=== PATIENT | female | born 1955 ===

== ENCOUNTER 2018-10-11 09:12 | Inpatient (IN) ==
[2018-10-11 11:44] LABS: Basophils % 0.3 % (0.0-0.8); Eosinophils # 0.1 10*3/uL (0.0-0.87); Eosinophils % 0.6 % (0.00-10.9); Hematocrit 34.1 VOL% (35.7-47.0); Hemoglobin 10.4 GM/DL (12.0-16.0); Immature Granulocytes % 0.7 %; Immature Granulocytes Absolute 0.11 #; Lymphocytes # 0.8 10*3/uL (1.4-4.0); Mean Corpuscular HGB Conc 30.5 GM/DL (32-36); Mean Corpuscular Hemoglobin 30 PG (27-34); Mean Corpuscular Volume 97.7 FL (87-102); Mean Platelet Volume 11.3 FL (9.6-12.0); Monocytes # 1.2 10*3/uL (0.11-0.8); Monocytes % 7.4 % (1.7-12.7); Neutrophils # 13.6 10*3/uL (1.4-7.4); Platelet Count 171 T/CUMM (130-400); Red Blood Count 3.49 MC/CUMM (3.8-5.5); Red Cell Distribution Width 14.4 % (9.3-17.3); White Blood Count 15.8 T/CUMM (4-12)
[2018-10-11 12:12] LABS: Albumin 2.3 G/DL (3.4-5.0); Bilirubin,Total 0.8 MG/DL (0.2-1.0); Calcium 7.3 MG/DL (8.5-10.1); Osmolality,Calculated 273.1 MOS/KG (273-304); Potassium 5.3 MMOL/L (3.5-5.1); Total Protein 6.4 G/DL (6.4-8.3)
[2018-10-11] MEDS ORDERED: VANCOMYCIN INJ 1,000 MG in SODIUM CHLORIDE 0.9% 250 ML IV ONE (12:43)
[2018-10-11] MEDS ORDERED: VANCOMYCIN INJ 500 MG in SODIUM CHLORIDE 0.9% 100 ML IV PRN (13:13)
[2018-10-11] MEDS ORDERED: GENTAMICIN INJ 60 MG in SODIUM CHLORIDE 0.9% 100 ML IV PRN (13:14)
[2018-10-11] MEDS ORDERED: GENTAMICIN INJ 140 MG in SODIUM CHLORIDE 0.9% 100 ML IV ONE (14:00)
[2018-10-11] MEDS ORDERED: DEXTROSE 5% 1,000 ML IV SCH (14:30)
[2018-10-11] MEDS ORDERED: ALBUTEROL 2.5 MG/3 ML NEB RESP TX PRN (15:41)
[2018-10-11] MEDS ORDERED: DEXTROSE 50% 25 GM/50 ML SYRINGE IV ONE (16:15)
[2018-10-11] MEDS ORDERED: DEXTROSE 50% 25 GM/50 ML SYRINGE IV PRN (16:17)
[2018-10-11] MEDS: FAMOTIDINE 20 MG/2 ML VIAL IV SCH (16:34)
[2018-10-11] MEDS: DEXTROSE 5% NACL 0.9% 1,000 ML IV SCH (17:11)
[2018-10-11] MEDS: ACETAMINOPHEN 325 MG TABLET PO PRN (20:53)
[2018-10-12] MEDS: DEXTROSE 5% NACL 0.9% 1,000 ML IV SCH (03:25)
[2018-10-12] MEDS: FAMOTIDINE 20 MG/2 ML VIAL IV SCH (03:26)
[2018-10-12 04:29] LABS: Basophils % 0.2 % (0.0-0.8); Eosinophils # 0.2 10*3/uL (0.0-0.87); Eosinophils % 0.9 % (0.00-10.9); Hematocrit 33.2 VOL% (35.7-47.0); Hemoglobin 10.5 GM/DL (12.0-16.0); Immature Granulocytes % 0.7 %; Immature Granulocytes Absolute 0.12 #; Lymphocytes # 0.7 10*3/uL (1.4-4.0); Lymphocytes % 4.2 % (21.3-54.2); Mean Corpuscular HGB Conc 31.6 GM/DL (32-36); Mean Corpuscular Hemoglobin 30 PG (27-34); Mean Corpuscular Volume 95.4 FL (87-102); Mean Platelet Volume 11.1 FL (9.6-12.0); Monocytes # 1.1 10*3/uL (0.11-0.8); Monocytes % 6.5 % (1.7-12.7); Neutrophils # 14.4 10*3/uL (1.4-7.4); Neutrophils % 87.5 % (38.7-73.9); Platelet Count 189 T/CUMM (130-400); Red Blood Count 3.48 MC/CUMM (3.8-5.5); Red Cell Distribution Width 14.2 % (9.3-17.3); White Blood Count 16.5 T/CUMM (4-12)
[2018-10-12 05:01] LABS: Albumin 2.3 G/DL (3.4-5.0); Bilirubin,Total 0.6 MG/DL (0.2-1.0); Calcium 7.8 MG/DL (8.5-10.1); Eosinophils 2 % (0-10); Lymphocytes 5 % (20-55); Osmolality,Calculated 270.2 MOS/KG (273-304); Platelet Estimate Adequate; Potassium 3.7 MMOL/L (3.5-5.1); Segmented Neutrophils 89 % (50-85); Total Cells Counted 100; Total Protein 6.4 G/DL (6.4-8.3)
[2018-10-12] MEDS: CARVEDILOL 6.25 MG TABLET PO SCH ×2 (11:21→20:24)
[2018-10-12] MEDS: amLODIPine 2.5 MG TABLET PO SCH (11:22)
[2018-10-12] MEDS: HYDROCORTISONE 100 MG VIAL IV SCH ×2 (11:22→18:44)
[2018-10-12] MEDS: ACETAMINOPHEN 325 MG TABLET PO PRN ×2 (14:19→20:23)
[2018-10-12] MEDS: cloNIDine 0.1 MG TABLET PO SCH (17:04)
[2018-10-12] MEDS: PANTOPRAZOLE 40 MG TABLET PO SCH (20:23)
[2018-10-13] MEDS: HYDROCORTISONE 100 MG VIAL IV SCH ×3 (03:08→18:25)
[2018-10-13] MEDS ORDERED: FAMOTIDINE 20 MG/2 ML VIAL IV SCH (04:00)
[2018-10-13 04:36] LABS: Basophils % 0.1 % (0.0-0.8); Hematocrit 34.9 VOL% (35.7-47.0); Hemoglobin 10.9 GM/DL (12.0-16.0); Immature Granulocytes % 0.6 %; Immature Granulocytes Absolute 0.12 #; Lymphocytes # 0.4 10*3/uL (1.4-4.0); Lymphocytes % 1.9 % (21.3-54.2); Mean Corpuscular HGB Conc 31.2 GM/DL (32-36); Mean Corpuscular Hemoglobin 30 PG (27-34); Mean Corpuscular Volume 95.6 FL (87-102); Mean Platelet Volume 10.8 FL (9.6-12.0); Monocytes # 0.5 10*3/uL (0.11-0.8); Monocytes % 2.8 % (1.7-12.7); Neutrophils # 18.1 10*3/uL (1.4-7.4); Neutrophils % 94.6 % (38.7-73.9); Platelet Count 210 T/CUMM (130-400); Red Blood Count 3.65 MC/CUMM (3.8-5.5); Red Cell Distribution Width 14.3 % (9.3-17.3); White Blood Count 19.2 T/CUMM (4-12)
[2018-10-13 04:53] LABS: Calcium 7.9 MG/DL (8.5-10.1); Osmolality,Calculated 285.2 MOS/KG (273-304); Potassium 4.2 MMOL/L (3.5-5.1)
[2018-10-13 05:04] LABS: Band Neutrophils 2 % (0-10); Hypochromasia 1+; Lymphocytes 2 % (20-55); Platelet Estimate Adequate; Segmented Neutrophils 95 % (50-85); Total Cells Counted 100
[2018-10-13 05:05] LABS: Ovalocytes Slight
[2018-10-13] MEDS: ACETAMINOPHEN 325 MG TABLET PO PRN ×2 (06:15→10:37)
[2018-10-13] MEDS: cloNIDine 0.1 MG TABLET PO SCH ×2 (12:05→16:18)
[2018-10-13] MEDS: CARVEDILOL 6.25 MG TABLET PO SCH ×2 (12:06→21:15)
[2018-10-13] MEDS: amLODIPine 2.5 MG TABLET PO SCH (12:06)
[2018-10-13] MEDS: PANTOPRAZOLE 40 MG TABLET PO SCH ×2 (12:06→21:15)
[2018-10-13] MEDS ORDERED: VANCOMYCIN INJ 500 MG in SODIUM CHLORIDE 0.9% 100 ML IV ONE (14:00)
[2018-10-13] MEDS ORDERED: GENTAMICIN INJ 60 MG in SODIUM CHLORIDE 0.9% 100 ML IV ONE (15:00)
[2018-10-14] MEDS: HYDROCORTISONE 100 MG VIAL IV SCH ×3 (04:25→18:22)
[2018-10-14 06:52] LABS: Basophils % 0.1 % (0.0-0.8); Eosinophils % 0.1 % (0.00-10.9); Hematocrit 38.1 VOL% (35.7-47.0); Hemoglobin 12.2 GM/DL (12.0-16.0); Immature Granulocytes % 0.5 %; Immature Granulocytes Absolute 0.09 #; Lymphocytes # 0.6 10*3/uL (1.4-4.0); Lymphocytes % 3.4 % (21.3-54.2); Mean Corpuscular Hemoglobin 30 PG (27-34); Mean Corpuscular Volume 93.6 FL (87-102); Mean Platelet Volume 10.3 FL (9.6-12.0); Monocytes # 0.8 10*3/uL (0.11-0.8); Monocytes % 4.5 % (1.7-12.7); Neutrophils # 15.7 10*3/uL (1.4-7.4); Neutrophils % 91.4 % (38.7-73.9); Platelet Count 260 T/CUMM (130-400); Red Blood Count 4.07 MC/CUMM (3.8-5.5); Red Cell Distribution Width 14.1 % (9.3-17.3); White Blood Count 17.2 T/CUMM (4-12)
[2018-10-14 07:13] LABS: Burr Cells Slight; Hypochromasia 1+; Lymphocytes 6 % (20-55); Microcytosis Slight; Ovalocytes Slight; Segmented Neutrophils 90 % (50-85); Total Cells Counted 100
[2018-10-14 07:14] LABS: Platelet Estimate Normal
[2018-10-14 07:15] LABS: Calcium 8.1 MG/DL (8.5-10.1); Osmolality,Calculated 283.5 MOS/KG (273-304); Potassium 4.4 MMOL/L (3.5-5.1)
[2018-10-14] MEDS: CARVEDILOL 6.25 MG TABLET PO SCH ×2 (08:36→21:24)
[2018-10-14] MEDS: amLODIPine 2.5 MG TABLET PO SCH (08:36)
[2018-10-14] MEDS: PANTOPRAZOLE 40 MG TABLET PO SCH ×2 (08:37→21:24)
[2018-10-14] MEDS: cloNIDine 0.1 MG TABLET PO SCH ×2 (08:37→16:52)
[2018-10-14] MEDS ORDERED: GLUCAGON 1 MG VIAL IM PRN (13:53)
[2018-10-14] MEDS ORDERED: DEXTROSE 50% 25 GM/50 ML VIAL IV PRN (13:53)
[2018-10-14] MEDS: INSULIN REGULAR 100 UNIT/ML SUBCUT SCH (18:23)
[2018-10-14] MEDS: ACETAMINOPHEN 325 MG TABLET PO PRN (21:24)
[2018-10-15] MEDS: INSULIN REGULAR 100 UNIT/ML SUBCUT SCH ×5 (01:55→23:27)
[2018-10-15] MEDS: HYDROCORTISONE 100 MG VIAL IV SCH ×4 (03:26→23:27)
[2018-10-15 05:12] LABS: Basophils % 0.1 % (0.0-0.8); Hematocrit 33.4 VOL% (35.7-47.0); Hemoglobin 10.8 GM/DL (12.0-16.0); Immature Granulocytes % 0.6 %; Immature Granulocytes Absolute 0.08 #; Lymphocytes # 0.4 10*3/uL (1.4-4.0); Lymphocytes % 3.1 % (21.3-54.2); Mean Corpuscular HGB Conc 32.3 GM/DL (32-36); Mean Corpuscular Hemoglobin 30 PG (27-34); Mean Corpuscular Volume 92.3 FL (87-102); Mean Platelet Volume 11.2 FL (9.6-12.0); Monocytes # 0.8 10*3/uL (0.11-0.8); Monocytes % 5.7 % (1.7-12.7); Neutrophils % 90.5 % (38.7-73.9); Platelet Count 214 T/CUMM (130-400); Red Blood Count 3.62 MC/CUMM (3.8-5.5); White Blood Count 13.3 T/CUMM (4-12)
[2018-10-15 05:29] LABS: Calcium 7.5 MG/DL (8.5-10.1); Osmolality,Calculated 291.5 MOS/KG (273-304); Potassium 4.1 MMOL/L (3.5-5.1)
[2018-10-15 05:32] LABS: Gentamicin,Random 3.1 UG/ML; Vancomycin,Random 14.3 UG/ML
[2018-10-15 06:18] LABS: Lymphocytes 3 % (20-55); Platelet Estimate Normal; Segmented Neutrophils 94 % (50-85); Total Cells Counted 100
[2018-10-15] MEDS: PANTOPRAZOLE 40 MG TABLET PO SCH ×2 (10:01→20:09)
[2018-10-15] MEDS: traMADol 50 MG TABLET PO PRN ×3 (11:38→23:27)
[2018-10-15] MEDS: cloNIDine 0.1 MG TABLET PO SCH ×2 (14:11→16:35)
[2018-10-15] MEDS: CARVEDILOL 6.25 MG TABLET PO SCH ×2 (14:12→20:09)
[2018-10-15] MEDS ORDERED: GENTAMICIN INJ 60 MG in SODIUM CHLORIDE 0.9% 100 ML IV ONE (16:00)
[2018-10-15] MEDS ORDERED: VANCOMYCIN INJ 500 MG in SODIUM CHLORIDE 0.9% 100 ML IV ONE (16:30)
[2018-10-15] MEDS: amLODIPine 2.5 MG TABLET PO SCH (16:35)
[2018-10-16] MEDS: traMADol 50 MG TABLET PO PRN ×2 (05:04→12:05)
[2018-10-16] MEDS: INSULIN REGULAR 100 UNIT/ML SUBCUT SCH ×4 (06:00→17:04)
[2018-10-16 06:01] LABS: Basophils % 0.1 % (0.0-0.8); Eosinophils % 0.1 % (0.00-10.9); Hematocrit 35.5 VOL% (35.7-47.0); Hemoglobin 11.3 GM/DL (12.0-16.0); Immature Granulocytes % 0.4 %; Immature Granulocytes Absolute 0.04 #; Lymphocytes # 0.4 10*3/uL (1.4-4.0); Mean Corpuscular HGB Conc 31.8 GM/DL (32-36); Mean Corpuscular Hemoglobin 30 PG (27-34); Mean Corpuscular Volume 94.2 FL (87-102); Mean Platelet Volume 10.7 FL (9.6-12.0); Monocytes # 0.8 10*3/uL (0.11-0.8); Monocytes % 7.2 % (1.7-12.7); Neutrophils # 9.4 10*3/uL (1.4-7.4); Neutrophils % 88.2 % (38.7-73.9); Platelet Count 193 T/CUMM (130-400); Red Blood Count 3.77 MC/CUMM (3.8-5.5); Red Cell Distribution Width 14.2 % (9.3-17.3); White Blood Count 10.7 T/CUMM (4-12)
[2018-10-16 06:05] LABS: Calcium 7.9 MG/DL (8.5-10.1); Osmolality,Calculated 275.5 MOS/KG (273-304); Potassium 4.1 MMOL/L (3.5-5.1)
[2018-10-16 06:45] LABS: Lymphocytes 4 % (20-55); Segmented Neutrophils 92 % (50-85); Total Cells Counted 100
[2018-10-16 06:46] LABS: Anisocytosis 1+; Platelet Estimate Adequate
[2018-10-16] MEDS: PANTOPRAZOLE 40 MG TABLET PO SCH ×2 (08:21→20:44)
[2018-10-16] MEDS: CARVEDILOL 6.25 MG TABLET PO SCH ×2 (08:21→20:44)
[2018-10-16] MEDS: amLODIPine 2.5 MG TABLET PO SCH (08:21)
[2018-10-16] MEDS: cloNIDine 0.1 MG TABLET PO SCH ×2 (08:21→16:35)
[2018-10-16] MEDS: HYDROCORTISONE 100 MG VIAL IV SCH ×2 (12:05→23:39)
[2018-10-17] MEDS: INSULIN REGULAR 100 UNIT/ML SUBCUT SCH ×4 (01:38→18:17)
[2018-10-17] MEDS: traMADol 50 MG TABLET PO PRN ×4 (03:42→23:35)
[2018-10-17 05:00] LABS: Basophils % 0.2 % (0.0-0.8); Eosinophils % 0.1 % (0.00-10.9); Hematocrit 33.6 VOL% (35.7-47.0); Hemoglobin 10.9 GM/DL (12.0-16.0); Immature Granulocytes % 0.5 %; Immature Granulocytes Absolute 0.07 #; Lymphocytes # 0.4 10*3/uL (1.4-4.0); Lymphocytes % 3.4 % (21.3-54.2); Mean Corpuscular HGB Conc 32.4 GM/DL (32-36); Mean Corpuscular Hemoglobin 30 PG (27-34); Mean Corpuscular Volume 92.8 FL (87-102); Mean Platelet Volume 10.8 FL (9.6-12.0); Monocytes # 0.5 10*3/uL (0.11-0.8); Monocytes % 3.7 % (1.7-12.7); Neutrophils # 11.8 10*3/uL (1.4-7.4); Neutrophils % 92.1 % (38.7-73.9); Platelet Count 204 T/CUMM (130-400); Red Blood Count 3.62 MC/CUMM (3.8-5.5); White Blood Count 12.8 T/CUMM (4-12)
[2018-10-17 05:30] LABS: Calcium 7.5 MG/DL (8.5-10.1); Osmolality,Calculated 285.8 MOS/KG (273-304); Potassium 4.5 MMOL/L (3.5-5.1)
[2018-10-17 06:02] LABS: Anisocytosis 1+; Band Neutrophils 5 % (0-10); Lymphocytes 7 % (20-55); Platelet Estimate Normal; Poikilocytosis Slight; Segmented Neutrophils 83 % (50-85); Total Cells Counted 100
[2018-10-17 06:03] LABS: Macrocytosis Slight
[2018-10-17] MEDS: cloNIDine 0.1 MG TABLET PO SCH ×2 (08:26→17:21)
[2018-10-17] MEDS: PANTOPRAZOLE 40 MG TABLET PO SCH ×2 (08:26→20:34)
[2018-10-17] MEDS: amLODIPine 2.5 MG TABLET PO SCH (08:28)
[2018-10-17] MEDS: CARVEDILOL 6.25 MG TABLET PO SCH ×2 (11:00→20:34)
[2018-10-17] MEDS: HYDROCORTISONE 100 MG VIAL IV SCH (11:01)
[2018-10-18] MEDS: INSULIN REGULAR 100 UNIT/ML SUBCUT SCH ×4 (02:13→17:38)
[2018-10-18] MEDS: HYDROCORTISONE 100 MG VIAL IV SCH ×2 (02:30→12:53)
[2018-10-18 04:56] LABS: Basophils % 0.2 % (0.0-0.8); Eosinophils # 0.1 10*3/uL (0.0-0.87); Eosinophils % 0.9 % (0.00-10.9); Hematocrit 36.2 VOL% (35.7-47.0); Hemoglobin 11.7 GM/DL (12.0-16.0); Immature Granulocytes % 0.8 %; Immature Granulocytes Absolute 0.13 #; Lymphocytes # 0.6 10*3/uL (1.4-4.0); Lymphocytes % 3.9 % (21.3-54.2); Mean Corpuscular HGB Conc 32.3 GM/DL (32-36); Mean Corpuscular Hemoglobin 30 PG (27-34); Mean Corpuscular Volume 93.3 FL (87-102); Mean Platelet Volume 10.7 FL (9.6-12.0); Monocytes % 6.2 % (1.7-12.7); Neutrophils # 13.8 10*3/uL (1.4-7.4); Platelet Count 240 T/CUMM (130-400); Red Blood Count 3.88 MC/CUMM (3.8-5.5); Red Cell Distribution Width 13.8 % (9.3-17.3); White Blood Count 15.7 T/CUMM (4-12)
[2018-10-18 05:21] LABS: Calcium 7.6 MG/DL (8.5-10.1); Osmolality,Calculated 289.8 MOS/KG (273-304); Potassium 4.4 MMOL/L (3.5-5.1)
[2018-10-18 05:23] LABS: Acanthocytes Few; Eosinophils 2 % (0-10); Lymphocytes 3 % (20-55); Microcytosis Slight; Segmented Neutrophils 91 % (50-85); Total Cells Counted 100
[2018-10-18 05:24] LABS: Ovalocytes Slight; Platelet Estimate Normal; Target Cells Slight
[2018-10-18] MEDS: traMADol 50 MG TABLET PO PRN ×3 (07:33→21:43)
[2018-10-18] MEDS: amLODIPine 2.5 MG TABLET PO SCH (12:41)
[2018-10-18] MEDS: PANTOPRAZOLE 40 MG TABLET PO SCH ×2 (12:41→21:44)
[2018-10-18] MEDS: CARVEDILOL 6.25 MG TABLET PO SCH ×2 (12:41→21:43)
[2018-10-18] MEDS: cloNIDine 0.1 MG TABLET PO SCH ×2 (12:41→17:39)
[2018-10-18] MEDS: INSULIN GLARGINE 100 UNIT/ML SUBCUT SCH (12:53)
[2018-10-18] MEDS ORDERED: GENTAMICIN INJ 60 MG in SODIUM CHLORIDE 0.9% 100 ML IV ONE (17:00)
[2018-10-18] MEDS ORDERED: VANCOMYCIN INJ 500 MG in SODIUM CHLORIDE 0.9% 100 ML IV ONE (17:30)
[2018-10-19] MEDS: HYDROCORTISONE 100 MG VIAL IV SCH ×2 (00:58→12:13)
[2018-10-19] MEDS: INSULIN REGULAR 100 UNIT/ML SUBCUT SCH ×4 (01:01→17:33)
[2018-10-19] MEDS: traMADol 50 MG TABLET PO PRN ×2 (04:59→12:29)
[2018-10-19 05:36] LABS: Basophils % 0.1 % (0.0-0.8); Eosinophils % 0.2 % (0.00-10.9); Hematocrit 33.8 VOL% (35.7-47.0); Hemoglobin 11.2 GM/DL (12.0-16.0); Immature Granulocytes % 0.8 %; Immature Granulocytes Absolute 0.12 #; Lymphocytes # 0.4 10*3/uL (1.4-4.0); Lymphocytes % 2.3 % (21.3-54.2); Mean Corpuscular HGB Conc 33.1 GM/DL (32-36); Mean Corpuscular Hemoglobin 31 PG (27-34); Mean Corpuscular Volume 92.3 FL (87-102); Mean Platelet Volume 10.9 FL (9.6-12.0); Monocytes # 0.6 10*3/uL (0.11-0.8); Monocytes % 3.5 % (1.7-12.7); Neutrophils # 14.7 10*3/uL (1.4-7.4); Neutrophils % 93.1 % (38.7-73.9); Platelet Count 274 T/CUMM (130-400); Red Blood Count 3.66 MC/CUMM (3.8-5.5); Red Cell Distribution Width 14.2 % (9.3-17.3); White Blood Count 15.8 T/CUMM (4-12)
[2018-10-19 05:54] LABS: Calcium 7.9 MG/DL (8.5-10.1); Osmolality,Calculated 282.4 MOS/KG (273-304); Potassium 3.7 MMOL/L (3.5-5.1)
[2018-10-19 06:17] LABS: Hypochromasia 1+; Lymphocytes 2 % (20-55); Ovalocytes Slight; Platelet Estimate Adequate; Segmented Neutrophils 96 % (50-85); Total Cells Counted 100
[2018-10-19 06:18] LABS: Microcytosis Slight
[2018-10-19] MEDS: PANTOPRAZOLE 40 MG TABLET PO SCH ×2 (08:40→22:19)
[2018-10-19] MEDS: amLODIPine 2.5 MG TABLET PO SCH (08:40)
[2018-10-19] MEDS: cloNIDine 0.1 MG TABLET PO SCH ×2 (08:40→17:33)
[2018-10-19] MEDS: INSULIN GLARGINE 100 UNIT/ML SUBCUT SCH (08:43)
[2018-10-19] MEDS: CARVEDILOL 6.25 MG TABLET PO SCH ×2 (08:43→22:19)
[2018-10-20] MEDS: traMADol 50 MG TABLET PO PRN ×3 (00:14→19:37)
[2018-10-20] MEDS: HYDROCORTISONE 100 MG VIAL IV SCH ×3 (00:17→23:41)
[2018-10-20] MEDS: INSULIN REGULAR 100 UNIT/ML SUBCUT SCH ×5 (01:31→23:40)
[2018-10-20 05:04] LABS: Basophils % 0.1 % (0.0-0.8); Eosinophils # 0.1 10*3/uL (0.0-0.87); Eosinophils % 0.4 % (0.00-10.9); Hematocrit 32.6 VOL% (35.7-47.0); Hemoglobin 10.5 GM/DL (12.0-16.0); Immature Granulocytes % 0.8 %; Immature Granulocytes Absolute 0.12 #; Lymphocytes # 0.4 10*3/uL (1.4-4.0); Lymphocytes % 2.8 % (21.3-54.2); Mean Corpuscular HGB Conc 32.2 GM/DL (32-36); Mean Corpuscular Hemoglobin 30 PG (27-34); Mean Corpuscular Volume 93.4 FL (87-102); Mean Platelet Volume 11.1 FL (9.6-12.0); Monocytes # 0.5 10*3/uL (0.11-0.8); Monocytes % 3.4 % (1.7-12.7); Neutrophils % 92.5 % (38.7-73.9); Platelet Count 269 T/CUMM (130-400); Red Blood Count 3.49 MC/CUMM (3.8-5.5); Red Cell Distribution Width 14.5 % (9.3-17.3); White Blood Count 15.2 T/CUMM (4-12)
[2018-10-20 05:18] LABS: Calcium 7.5 MG/DL (8.5-10.1); Osmolality,Calculated 285.9 MOS/KG (273-304); Potassium 4.6 MMOL/L (3.5-5.1)
[2018-10-20 05:28] LABS: Burr Cells Slight; Hypochromasia 1+; Lymphocytes 3 % (20-55); Ovalocytes Slight; Platelet Estimate Adequate; Segmented Neutrophils 97 % (50-85); Total Cells Counted 100
[2018-10-20 05:29] LABS: Microcytosis Slight
[2018-10-20] MEDS ORDERED: LIDOCAINE 1% 20 ML VIAL ONE (06:34)
[2018-10-20] MEDS ORDERED: LIDOCAINE 1%/EPI INJ 20 ML VIAL ONE (07:51)
[2018-10-20] MEDS ORDERED: CLINDAMYCIN INJ 50 ML IV ONE (07:59)
[2018-10-20] MEDS ORDERED: PROPOFOL 200 MG/20 ML VIAL IV ONE (08:24)
[2018-10-20] MEDS ORDERED: fentaNYL 100 MCG/2 ML VIAL ONE (08:25)
[2018-10-20] MEDS ORDERED: MIDAZOLAM 2 MG/2 ML VIAL ONE (08:25)
[2018-10-20] MEDS ORDERED: ONDANSETRON 4 MG/2 ML VIAL ONE (08:25)
[2018-10-20] MEDS ORDERED: KETAMINE 500 MG/10 ML VIAL ONE (08:25)
[2018-10-20] MEDS: PANTOPRAZOLE 40 MG TABLET PO SCH ×2 (09:04→21:28)
[2018-10-20] MEDS: INSULIN GLARGINE 100 UNIT/ML SUBCUT SCH (09:06)
[2018-10-20] MEDS ORDERED: KETOROLAC 15 MG/1 ML VIAL IM PRN (10:54)
[2018-10-20] MEDS ORDERED: KETOROLAC 15 MG/1 ML VIAL IV PRN (11:19)
[2018-10-20] MEDS: SODIUM CHLORIDE 0.9% 250 ML IV SCH ×2 (12:27→23:44)
[2018-10-20] MEDS: cloNIDine 0.1 MG TABLET PO SCH ×2 (12:27→16:56)
[2018-10-20] MEDS: amLODIPine 2.5 MG TABLET PO SCH (12:28)
[2018-10-20] MEDS: CARVEDILOL 6.25 MG TABLET PO SCH ×2 (12:28→21:28)
[2018-10-20] MEDS: ACETAMINOPHEN 325 MG TABLET PO PRN ×2 (13:53→23:15)
[2018-10-20] MEDS ORDERED: GENTAMICIN INJ 60 MG in SODIUM CHLORIDE 0.9% 100 ML IV ONE (15:00)
[2018-10-20] MEDS ORDERED: VANCOMYCIN INJ 500 MG in SODIUM CHLORIDE 0.9% 100 ML IV ONE (16:00)
[2018-10-21] MEDS: traMADol 50 MG TABLET PO PRN ×2 (02:10→08:17)
[2018-10-21] MEDS: INSULIN REGULAR 100 UNIT/ML SUBCUT SCH ×2 (06:30→11:44)
[2018-10-21 07:52] VITALS: BP 197/93
[2018-10-21] MEDS: amLODIPine 2.5 MG TABLET PO SCH (08:15)
[2018-10-21] MEDS: PANTOPRAZOLE 40 MG TABLET PO SCH (08:16)
[2018-10-21] MEDS: CARVEDILOL 6.25 MG TABLET PO SCH (08:16)
[2018-10-21] MEDS: cloNIDine 0.1 MG TABLET PO SCH (08:17)
[2018-10-21] MEDS: INSULIN GLARGINE 100 UNIT/ML SUBCUT SCH (08:20)
[2018-10-21] MEDS ORDERED: SODIUM HYPOCHLORITE 0.25% IRRIG 473 ML BOTTLE TOP SCH (11:30)
[2018-10-21] MEDS: HYDROCORTISONE 100 MG VIAL IV SCH (11:44)
== END 2018-10-21 14:51 | disposition home health service (06) | DRG 616 ==
LOC: N.ICU 10:55 → SUATTDRO 10:55 → N.2E 10-16 18:15
PROVIDERS: ADMIT Family Medicine; ATTEND Hospitalist